=== PATIENT | female | born 2000 | race Caucasian/White ===

== ENCOUNTER 2022-10-18 18:18 | Emergency (ER) | payer OTHER, SELFPAY ==
[2022-10-18 18:31] VITALS: BP 139/63; PULSE 85; RESP 18; TEMP 36.9; O2SAT 99
[2022-10-18 19:33] LABS: Appearance Urine Cloudy (Clear); Bacteria Urine Rare /hpf; Bilirubin Urine Negative (Negative); Blood Urine Trace (Negative); Color Urine Yellow (Yellow); Glucose Urine UA Negative (Negative); Ketones Urine Negative (Negative); Leukocyte Esterase Ur 3+ LEU/UL (Negative); Nitrate Urine Negative (Negative); Non Pathogenic Casts 0-2; Protein Urine Negative (Negative); RBC Urine 0-2 /hpf (0-2); Squamous Epithelial Cell Urine Few /hpf (Few); Urobilinogen Urine 0.2 mg/dL (<2.0); WBC Urine 51-100 /hpf; pH Urine 6.5 (5.0-9.0)
[2022-10-18 19:41] LABS: Add Urine Microscopic? YES
--- NOTE | 2022-10-18 20:49 | ED.GENADULT ---
HPI - General Adult General Chief complaint: Back Pain/Injury Stated complaint: back pain, pain with urination Time Seen by Provider: 10/18/22 20:37 History of Present Illness HPI narrative: Patient 22-year-old female who presents the emergency department with chief complaint of flank pain. Patient reports that she has been having flank pain for the last several days and reports that she is having some suprapubic discomfort. Patient states that she has urinary frequency and burning with urination. The patient reports is also been several months since her last menstrual period patient denies vaginal bleeding and denies pelvic pain. Related Data Allergies Allergy/AdvReac Type Severity Reaction Status Date / Time morphine AdvReac Headache Verified 10/18/22 19:19 Review of Systems Review of Systems: A 10 system review of systems was completed on the patient and is negative except for what is stated in the HPI. Nursing and ancillary documentation was reviewed. Exam Narrative: GENERAL: Well-appearing, well-nourished, and in no acute distress. HEAD: Normocephalic, atraumatic. EYES: PERRLA and EOMI. ENT: Nares clear, no rhinorrhea or epistaxis. Mucous membranes moist. NECK: Supple. CHEST: Clear to auscultation. No respiratory distress. HEART: Regular rate and rhythm. No murmur heard. Normal peripheral pulses. ABDOMEN: Soft, nontender, nondistended, normal active bowel sounds. Back: There is mild tenderness in bilateral costovertebral angles EXTREMITIES: Normal range of motion. No edema. SKIN: Warm, dry, no rash. NEURO: No focal deficits. Alert and oriented x3. PSYCH: Normal mood and affect. Course Vital Signs Vital signs: Vital Signs Temperature 36.9 C 10/18/22 18:31 Pulse Rate 85 10/18/22 18:31 Respiratory Rate 18 10/18/22 18:31 Blood Pressure 139/63 10/18/22 18:31 Pulse Oximetry 99 10/18/22 18:31 Oxygen Delivery Room Air 10/18/22 18:31 Temperature 36.9 C 10/18/22 18:31 Pulse Rate 85 10/18/22 18:31 Respiratory Rate 18 10/18/22 18:31 Blood Pressure 139/63 10/18/22 18:31 Pulse Oximetry 99 10/18/22 18:31 Oxygen Delivery Room Air 10/18/22 18:31 Medical Decision Making MDM Narrative Medical decision making narrative: Differential diagnosis includes pyelonephritis, ectopic , ureterolithiasis Laboratory studies were obtained which showed a urinalysis that showed 3+ leukocyte esterase and 5100 white blood cells in the urine. There is no red blood cells in the urine Bedside test was positive The patient is currently not showing signs of ectopic abdomen is soft and nontender. The patient will be discharged on p.o. Keflex and will be referred to [employer] Vital Signs Vital Signs: Vital Signs Temperature 36.9 C 10/18/22 18:31 Pulse Rate 85 10/18/22 18:31 Respiratory Rate 18 10/18/22 18:31 Blood Pressure 139/63 10/18/22 18:31 Pulse Oximetry 99 10/18/22 18:31 Oxygen Delivery Room Air 10/18/22 18:31 Temperature 36.9 C 10/18/22 18:31 Pulse Rate 85 10/18/22 18:31 Respiratory Rate 18 10/18/22 18:31 Blood Pressure 139/63 10/18/22 18:31 Pulse Oximetry 99 10/18/22 18:31 Oxygen Delivery Room Air 10/18/22 18:31 Lab Data Labs: Lab Results 10/18/22 Range/Units 19:20 Urine Color Yellow (Yellow) Urine Appearance Cloudy H (Clear) Urine pH 6.5 (5.0-9.0) Ur Specific [place] 1.010 (1.001-1.035) Urine Protein Negative (Negative) mg/dL Urine Glucose (UA) Negative (Negative) mg/dL Urine Ketones Negative (Negative) mg/dL Ur Blood (Man) Trace (Negative) Urine Nitrate Negative (Negative) Urine Bilirubin Negative (Negative) Urine Urobilinogen 0.2 (<2.0) mg/dL Leukocyte Esterase Rfl 3+ H (Negative) WILLIAM/UL Urine RBC 0-2 (0-2) /hpf Urine WBC 51-100 H /hpf Ur Squamous Epith Cells Few (Few) /hpf Urine Bacteria Rare /hpf Urine Casts 0-2
[2022-10-18] MEDS: CEPHALEXIN 500 MG CAPSULE PO (21:02)
== END 2022-10-18 21:05 | disposition home or self-care (01) ==
PROVIDERS: Emergency Medicine; Emergency Provider Emergency Medicine
DX: O23.00 Infections of kidney in pregnancy, unspecified trimester (principal); N10 Acute pyelonephritis; Z3A.00 Weeks of gestation of pregnancy not specified
CPT/HCPCS: 81001; 81025; 87077; 87086; 87088; 99283; A9270

== ENCOUNTER 2022-10-29 23:34 | Observation (INO) | payer OTHER, SELFPAY ==
[2022-10-29 23:38] VITALS: BP 140/98; PULSE 125; RESP 20; TEMP 37.1; O2SAT 100
[2022-10-30 00:27] LABS: Basophils Percent Auto 0.5 % (0.2-1.2); Eosinophils Absolute Auto 0.1 K/mm3 (0-0.3); Eosinophils Percent Auto 0.8 % (0-4.4); Hematocrit 33.8 % (37.0-47.0); Hemoglobin 11.2 g/dL (12.0-15.0); Immature Granulocyte Absolute 0.02 K/mm3 (0.00-0.031); Immature Granulocyte Percent A 0.2 % (0-0.5); Lymphocytes Absolute Auto 2.37 K/mm3 (0.9-3.2); Lymphocytes Percent Auto 27.9 % (18.3-44.2); Mean Corpuscular HGB Conc 33.1 g/dl (32-36); Mean Corpuscular Hemoglobin 28.6 pg (26-34); Mean Corpuscular Volume 86.2 fl (80-100); Mean Platelet Volume 10.6 fl (7.4-10.4); Monocytes Absolute Auto 0.6 K/mm3 (0.1-0.6); Monocytes Percent Auto 7.4 % (2.6-8.5); Neutrophils Absolute Auto 5.4 K/mm3 (1.3-6.7); Neutrophils Percent Auto 63.2 % (45.5-73.1); Platelet Count Result 296 k/mm3 (150-375); Red Blood Count 3.92 M/mm3 (4.2-5.4); Red Cell Distribution Width 13.3 % (11.5-14.5); White Blood Count 8.5 K/mm3 (4.5-10.0)
[2022-10-30 00:31] LABS: INR 0.9; Prothrombin Time 12.2 Seconds (11.1-14.7)
[2022-10-30 00:32] LABS: Partial Thromboplastin Time 24.2 SECONDS (22.3-36.8)
--- NOTE | 2022-10-30 00:46 | ED.FEMALEGU ---
HPI - Female Genitourinary General Chief complaint: Vaginal Bleeding Stated complaint: had , losing clots. Time Seen by Provider: 10/29/22 23:46 History of Present Illness HPI Narrative: Patient is a 22-year-old female presenting with vaginal bleeding. Patient had a medical earlier today for a of approximately 8 weeks gestation. States that she took the pills sometime in the afternoon and then she started bleeding about 5 to 6 hours ago. States that she has passed multiple clots as well as products of conception. States that she has been feeling more than 2 pads per hour for couple of hours so she came in for evaluation. She denies chest pain or shortness of breath. States that she has had mild lightheadedness. No abdominal pain, nausea or vomiting, leg swelling. No further complaints. Related Data Home Medications Medication Instructions Recorded Confirmed No Home Medications 11/03/22 11/03/22 Allergies Allergy/AdvReac Type Severity Reaction Status Date / Time morphine AdvReac Headache Verified 11/03/22 17:11 Review of Systems Review of Systems: All systems reviewed & are unremarkable except as noted in HPI and below PMFSH Family History Family History Other Unknown family medical history Social History Social History Smoking status: Never smoker Alcohol intake: never Drinks per week: 1 Substance use: never Lack of Transportation: No Lack of Food: Never True Current Housing: I Have Housing Concerned About Future Housing: No Difficulty Paying Gas/Electric Bills: No Difficulty Paying for Meds: No Currently Unemployed: No Education: Trade/Vocational Certificate Difficulty w/ Childcare or Family Care: No Spiritual care concerns: No Exam Narrative: GENERAL: Well-appearing, no acute distress HEAD: Normocephalic, atraumatic. EYES: PERRLA and EOMI. ENT: Grossly unremarkable NECK: Supple. CHEST: No respiratory distress. HEART: Regular rate and rhythm ABDOMEN: Soft, nontender, nondistended Pelvic: Large amount of blood with numerous very large clots in the vaginal vault EXTREMITIES: Normal range of motion. No edema. SKIN: Warm, dry, no rash. NEURO: No focal deficits. Alert and oriented x3. PSYCH: Normal mood and affect. Course Vital Signs Vital signs: Vital Signs Temperature 98.8 F 10/29/22 23:38 Pulse Rate 125 H 10/29/22 23:38 Respiratory Rate 20 10/29/22 23:38 Blood Pressure 140/98 H 10/29/22 23:38 Pulse Oximetry 100 10/29/22 23:38 Oxygen Delivery Room Air 10/29/22 23:38 Temperature 98.1 F 10/30/22 04:18 Pulse Rate 55 L 10/30/22 04:18 Respiratory Rate 18 10/30/22 04:18 Blood Pressure 104/52 L 10/30/22 04:18 Pulse Oximetry 98 10/30/22 04:18 Oxygen Delivery Room Air 10/30/22 09:20 MDM - Female Genitourinary MDM Narrative Medical decision making narrative: Patient is a 22-year-old female presenting with vaginal bleeding in the setting of a medical today. Vital stable. Blood work is stable. Patient has soaked through multiple pads since arriving in the ER. She is bleeding very heavily on pelvic exam with numerous large clots. Concerned by the degree of her bleeding. I spoke with Dr. Gallagher who advises admission for observation and he will see her in the morning. Patient is agreeable with this plan. Differential Diagnosis Differential diagnosis: Likely urinary tract infection, cystitis, dysmenorrhea and other (Incomplete ) Medical Records Attestation: I reviewed the patient's medical records. Lab Data Attestation: I reviewed the patient's lab results. 10/29/22 23:58 Labs: Lab Results 10/29/22 Range/Units 23:58 WBC 8.5 (4.5-10.0) K/mm3 RBC 3.92 L (4.2-5.4) M/mm3 Hgb 11.2 L (12.0-15.0) g/dL Hct 33.8 L (37.0-47.0) % MCV 86.2 (80-
[2022-10-30] MEDS: KETOROLAC 30 MG/ML VIAL (*BKC) IM (01:58)
[2022-10-30] MEDS: SODIUM CHLORIDE 0.9% IV 1,000 ML 999 ML IV CONT (02:48)
[2022-10-30 03:07] VITALS: BP 119/72; PULSE 66; RESP 15; O2SAT 100
--- NOTE | 2022-10-30 03:22 | ADMGEN ---
This patient, Susu Underwood, was admitted to Medical Room 345-. Patient/family oriented to hospital policies and general routines including ID bracelet, bed and alarms, visiting hours, pain management, procedures, bathroom and other care routines, personal items, smoking policy, room service/diet, and visiting hours. Information on how to activate the Rapid Response Team has been discussed. Patient/Family are encouraged to report perceived risks to care and to ask questions if they do not understand what they are told or what they should do.
[2022-10-30] MEDS: KETOROLAC 30 MG/ML VIAL (*BKC) IV PUSH (03:54)
[2022-10-30 04:18] VITALS: BP 104/52; PULSE 55; RESP 18; TEMP 36.7; O2SAT 98; BMI 36.1
--- NOTE | 2022-10-30 09:47 | PM.IMHP ---
H&P: HPI History of Present Illness Date/Time: 10/30/22 09:47 Chief Complaint: vaginal bleeding Narrative: this patient is a 22-year-old female who presented to the emergency department with heavy vaginal bleeding. She was experiencing an elective termination. She had profound bleeding. Bleeding was appreciated by the emergency room doctor. She was admitted in the bleeding has resolved since. Patient is stable. She had a normal hemoglobin in the emergency department. She is afebrile, she denies any nausea, vomiting, fever, chills. She denies any chest pain shortness of breath. We intend to send her home with very short-term follow-up. She will be seen in the office tomorrow or the next day for evaluation and pelvic ultrasound. Review of Systems Review of Systems: All systems reviewed & are unremarkable except as noted in HPI and below Constitutional: Constitutional: Denies chills, Denies fatigue, Denies fever(s) and Denies weakness Eyes: Eyes: Denies blurry vision, Denies change in vision, Denies loss of peripheral vision, Denies loss of vision, Denies other visual disturbances and Denies eye pain ENT: Denies vertigo, Denies dizziness, Denies hearing loss, Denies mouth pain, Denies nasal obstruction, Denies neck mass and Denies neck pain Cardiovascular: Cardiovascular: Denies chest pain, Denies diaphoresis, Denies syncope, Denies leg edema and Denies dyspnea Respiratory: Respiratory: Denies chest congestion, Denies cough, Denies hemoptysis, Denies dyspnea and Denies wheezing Gastrointestinal: Gastrointestinal: Denies abdominal pain, Denies constipation, Denies diarrhea, Denies nausea and Denies vomiting Genitourinary: Genitourinary: Denies hematuria, Denies change in libido, Denies nocturia, Denies genital lesions, Denies flank pain and Denies urinary urgency Musculoskeletal: Musculoskeletal: Denies abnormal gait, Denies back pain, Denies myalgias, Denies arthralgias, Denies joint swelling, Denies muscle weakness and Denies neck pain Integumentary/Breasts: Skin/Breast: Denies swelling, Denies breast pain, Denies breast mass, Denies dry skin, Denies nipple discharge, Denies unusual bruising and Denies jaundice Neurologic: Denies Neuro-related abnormal movements, Denies Abnormal speech present, Denies abnormal gait, Denies behavioral changes, Denies confusion, Denies vertigo, Denies dizziness, Denies syncope, Denies loss of vision, Denies memory loss, Denies convulsions and Denies weakness Psychiatric: Psychiatric: Denies abnormal sleep pattern, Denies behavioral changes, Denies change in libido, Denies confusion, Denies depression, Denies anhedonia and Denies memory loss Endocrine: Endocrine: Reports no additional endocrine complaints, Denies change in libido and Denies fatigue Hematologic/Lymphatic: Hematologic/Lymphatic: Reports no additional hematologic/lymphatic complaints Allergic/Immunologic: Allergic/Immunologic: Reports no additional allergic/immunologic complaints and Denies wheezing [facility] Family History Family History (Updated 10/30/22 @ 03:33 by Silvia Martinez RN) Other Unknown family medical history Social History Social History Smoking status: Never smoker Alcohol intake: current Drinks per week: 1 Substance use: never Lack of Transportation: No Lack of Food: Never True Current Housing: I Have Housing Concerned About Future Housing: No Difficulty Paying Gas/Electric Bills: No Difficulty Paying for Meds: No Currently Unemployed: YES Education: High School Diploma/GED Difficulty w/ Childcare or Family Care: No Spiritual care concerns: No Meds Home Medications and Allergies Home Medications Medication Instructions Recorded Confirmed Type ibuprofen 600 mg tablet 600 mg PO Q6H PRN Mild Pain (Scale 10/30/22 10/30/22 History Score 1-4) promethazine 25 mg tablet 25 mg PO Q4-6H PRN Nausea 10/30/22
== END 2022-10-30 13:43 | disposition home or self-care (01) ==
LOC: ANHED 10-30 00:06 → ANH3MED 10-30 02:39
PROVIDERS: Admitting Provider Obstetrics & Gynecology; Emergency Provider Emergency Medicine; Visit Provider Obstetrics & Gynecology
DX: O03.9 Complete or unspecified spontaneous abortion without complication (principal)
CPT/HCPCS: 36415; 85025; 85610; 85730; 86850; 86900; 86901; 96361; 96372; 96374; 99285; G0378; G0379; J1885; J7030

== ENCOUNTER 2022-11-03 15:12 | Inpatient (IN) | payer OTHER, SELFPAY ==
[2022-11-03] VITALS (9 sets, daily range): BP systolic 100–135; BP diastolic 43–78; PULSE 65–125; RESP 12–18; TEMP 36.6–37.4; O2SAT 100; BMI 37.5
--- NOTE | ~2022-11-03 | US_ITS ---
EXAMINATION: US pelvic complete w TV DATE: 11/03/2022 19:26 INDICATION: Vaginal bleeding, possible retained products of conception TECHNIQUE: Multiple transabdominal and endovaginal sonographic images of the pelvis were obtained. COMPARISON: None. FINDINGS: The uterus measures 10.4 x 5.3 x 6.0 cm. There is heterogeneous material in the endometrial and endocervical canals.. The right ovary measures 2.4 x 1.8 x 1.8 cm. The left ovary measures 1.6 x 1.6 x 1.5 cm. There is normal vascular flow in the ovaries. There is no free fluid in the pelvis. IMPRESSION: 1. Heterogeneous material in the endometrial and endocervical canals concerning for retained products of conception. Reviewed, dictated and finalized at location F.
[2022-11-03 15:31] LABS: Basophils Percent Auto 0.6 % (0.2-1.2); Eosinophils Percent Auto 0.6 % (0-4.4); Hematocrit 28.5 % (37.0-47.0); Hemoglobin 9.2 g/dL (12.0-15.0); Immature Granulocyte Absolute 0.03 K/mm3 (0.00-0.031); Immature Granulocyte Percent A 0.4 % (0-0.5); Lymphocytes Absolute Auto 2.43 K/mm3 (0.9-3.2); Lymphocytes Percent Auto 34.3 % (18.3-44.2); Mean Corpuscular HGB Conc 32.3 g/dl (32-36); Mean Corpuscular Hemoglobin 28.8 pg (26-34); Mean Corpuscular Volume 89.1 fl (80-100); Mean Platelet Volume 10.3 fl (7.4-10.4); Monocytes Absolute Auto 0.5 K/mm3 (0.1-0.6); Monocytes Percent Auto 6.4 % (2.6-8.5); Neutrophils Absolute Auto 4.1 K/mm3 (1.3-6.7); Neutrophils Percent Auto 57.7 % (45.5-73.1); Platelet Count Result 287 k/mm3 (150-375); Red Cell Distribution Width 13.6 % (11.5-14.5); White Blood Count 7.1 K/mm3 (4.5-10.0)
--- NOTE | 2022-11-03 18:24 | ED.GENADULT ---
HPI - General Adult General Chief complaint: Vaginal Bleeding Stated complaint: vaginal bleeding- Time Seen by Provider: 11/03/22 17:17 History of Present Illness HPI narrative: Susu Underwood is a 22 y/o female with her third and one set of twins. She state that she was 8 weeks along when she had an elective Monday the , she passed what she thought was the products along with heavy bleeding later on Monday so she came here concerned. She then was admitted for monitoring and d/c home the following day (Monday). She states that since she has been having heavy vaginal bleeding that she feels is getting worse today. She states that she passed more clots today and felt that she was passing too much blood and came back today. She describes going through about 4 pads an hour at home. Once she arrived here she states her vaginal bleeding has improved, she also reports of mild intermittent lower abdominal pain. Related Data Home Medications Medication Instructions Recorded Confirmed No Home Medications 11/03/22 11/03/22 Allergies Allergy/AdvReac Type Severity Reaction Status Date / Time morphine AdvReac Headache Verified 11/03/22 17:11 Review of Systems Review of Systems: CONSTITUTIONAL: Denies fever, chills, or sweats. EYES: Denies visual changes, redness, or discharge. ENT: Denies rhinorrhea, congestion, sore throat, or otalgia. CARDIOVASCULAR: Denies chest pain, palpitations, or edema. RESPIRATORY: Denies cough or dyspnea. GASTROINTESTINAL: reports mild abdominal pain, nausea, vomiting, or diarrhea. GENITOURINARY: Denies dysuria or hematuria. Reports heavy vaginal bleeding that has been ongoing since Monday and she felt that it was much worse today. SKIN: Denies rash or itching. MUSCULOSKELETAL: Denies back pain, joint pain, or myalgia. NEUROLOGIC: Denies headache, numbness, dizziness, or weakness. PSYCHIATRIC: Denies anxiety or depression. [facility] Family History Family History Other Unknown family medical history Social History Social History Smoking status: Never smoker Alcohol intake: current Drinks per week: 1 Substance use: never Lack of Transportation: No Lack of Food: Never True Current Housing: I Have Housing Concerned About Future Housing: No Difficulty Paying Gas/Electric Bills: No Difficulty Paying for Meds: No Currently Unemployed: YES Education: High School Diploma/GED Difficulty w/ Childcare or Family Care: No Spiritual care concerns: No Exam Narrative: GENERAL: Well-appearing, well-nourished, and in no acute distress. HEAD: Normocephalic, atraumatic. EYES: PERRLA and EOMI. ENT: Nares clear, no rhinorrhea or epistaxis. Mucous membranes moist. Oropharynx without tonsillar hypertrophy exudate or other lesions. NECK: Supple. No adenopathy or masses. No carotid bruits or JVD CHEST: Clear to auscultation. No respiratory distress. No wheezes rales or rhonchi HEART: Regular rate and rhythm. No murmur heard. Normal peripheral pulses. ABDOMEN: Soft, nontender, nondistended, normal active bowel sounds. EXTREMITIES: Normal range of motion. No edema. SKIN: Warm, dry, no rash. NEURO: No focal deficits. Alert and oriented x3. PSYCH: Normal mood and affect. Course Vital Signs Vital signs: Vital Signs Temperature 37.4 C 11/03/22 15:15 Pulse Rate 120 H 11/03/22 15:15 Respiratory Rate 16 11/03/22 15:15 Blood Pressure 117/70 11/03/22 15:15 Pulse Oximetry 100 11/03/22 15:15 Oxygen Delivery Room Air 11/03/22 15:15 Temperature 36.7 C 11/03/22 19:51 Pulse Rate 86 11/03/22 19:55 Respiratory Rate 15 11/03/22 19:51 Blood Pressure 109/75 11/03/22 19:55 Pulse Oximetry 100 11/03/22 19:51 Oxygen Delivery Room Air 11/03/22 15:15 Medical Decision Making MDM Narrative Medical decision
--- NOTE | 2022-11-03 20:15 | PM.IMHP ---
H&P: HPI History of Present Illness Date/Time: 11/03/22 20:15 Chief Complaint: Vaginal bleeding Narrative: Susu Underwood is a 22 y/o female with her third and one set of twins. she had an elective Monday the at a clinic office. She has been having heavy bleeding later on Monday so she came here concerned.? She then was admitted on October 30 to OBGYN for monitoring and d/c home the following day. that since she has been having heavy vaginal bleeding that she feels is getting worse today. she passed more clots today and felt that she was passing too much blood and came back today. In the ED, patient found have anemia, hemoglobin 9.2, baseline 11.2 on October 29, 2022. Transvaginal ultrasound reveals Heterogeneous material in the endometrial and endocervical canals concerning for retained products of conception.Upon arrival, patient is afebrile, hemodynamically stable. ER physician consulted OBGYN, Dr. Gallagher recommended that we could give her Micronized Progesterone 200mg PO, however the pharmacy here does not carry that. We admit patient for the evaluation and treatment Review of Systems Review of Systems: RS negative except above [facility] Family History Family History Other Unknown family medical history Social History Social History Smoking status: Never smoker Alcohol intake: current Drinks per week: 1 Substance use: never Lack of Transportation: No Lack of Food: Never True Current Housing: I Have Housing Concerned About Future Housing: No Difficulty Paying Gas/Electric Bills: No Difficulty Paying for Meds: No Currently Unemployed: YES Education: High School Diploma/GED Difficulty w/ Childcare or Family Care: No Spiritual care concerns: No Meds Home Medications and Allergies Home Medications Medication Instructions Recorded Confirmed Type No Home Medications 11/03/22 11/03/22 History Allergies Allergy/AdvReac Type Severity Reaction Status Date / Time morphine AdvReac Headache Verified 11/03/22 17:11 Vital Signs Vital Signs - 24 hr 11/03/22 15:15 11/03/22 16:15 11/03/22 17:12 Temperature 99.4 F 99.4 F Pulse Rate 120 H 125 H 86 Respiratory Rate 16 16 18 Blood Pressure 117/70 135/78 119/64 Pulse Oximetry 100 100 100 Oxygen Delivery Room Air 11/03/22 19:51 11/03/22 19:55 11/03/22 19:55 Temperature 98.1 F Pulse Rate 65 73 77 Respiratory Rate 15 Blood Pressure 110/67 108/58 L 111/65 Pulse Oximetry 100 Oxygen Delivery 11/03/22 19:55 Temperature Pulse Rate 86 Respiratory Rate Blood Pressure 109/75 Pulse Oximetry Oxygen Delivery Exam Narrative: GENERAL: Pleasant, in no acute distress. Well-nourished. - EYES: EOMI. Anicteric. - HENT: Moist mucous membranes. - LUNGS: Clear to auscultation bilaterally, no wheezing, rhonchi, or rales. - CARDIOVASCULAR: Regular rate and rhythm. No murmur. No JVD. - ABDOMEN: Soft, suprapubic tender and non-distended. No palpable masses. - EXTREMITIES: No edema. Peripheral pulses 2+. Non-tender. - NEUROLOGIC: No focal neurological deficits. CN II-XII grossly intact. - PSYCHIATRIC: Awake, Alert and oriented x 3. Appropriate mood and affect. - SKIN: No rashes or lesions. Warm. - LYMPH: No cervical lymphadenopathy. H&P: Results Labs Labs: Short CBC 11/03/22 Range/Units 15:21 WBC 7.1 (4.5-10.0) K/mm3 Hgb 9.2 L (12.0-15.0) g/dL Hct 28.5 L (37.0-47.0) % Plt Count 287 (150-375) k/mm3 Assessment and Plan Assessment and plan (1) Incomplete : Code(s): O03.4 - Incomplete spontaneous without complication Status: Acute (2) Vaginal bleeding: Code(s): N93.9 - Abnormal uterine and vaginal bleeding, unspecified Status: Acute (3) Acute blood loss anemia: Code(s): D62 - Ac
[2022-11-03] MEDS: ACETAMINOPHEN 500 MG TABLET 1000 MG PO (20:17)
[2022-11-03] MEDS: DICYCLOMINE HCL INJ 20 MG/2 ML VIAL IM (20:17)
[2022-11-03] MEDS: SODIUM CHLORIDE 0.9% IV 1,000 ML 100 ML IV CONT (20:39)
[2022-11-03 20:49] LABS: Basophils Absolute Auto 0.1 K/mm3 (0.0-0.1); Basophils Percent Auto 0.7 % (0.2-1.2); Eosinophils Absolute Auto 0.1 K/mm3 (0-0.3); Eosinophils Percent Auto 0.9 % (0-4.4); Hematocrit 27.3 % (37.0-47.0); Hemoglobin 8.8 g/dL (12.0-15.0); Immature Granulocyte Absolute 0.01 K/mm3 (0.00-0.031); Immature Granulocyte Percent A 0.1 % (0-0.5); Lymphocytes Absolute Auto 2.84 K/mm3 (0.9-3.2); Lymphocytes Percent Auto 35.1 % (18.3-44.2); Mean Corpuscular HGB Conc 32.2 g/dl (32-36); Mean Corpuscular Hemoglobin 28.4 pg (26-34); Mean Corpuscular Volume 88.1 fl (80-100); Mean Platelet Volume 10.7 fl (7.4-10.4); Monocytes Absolute Auto 0.6 K/mm3 (0.1-0.6); Monocytes Percent Auto 7.2 % (2.6-8.5); Neutrophils Absolute Auto 4.5 K/mm3 (1.3-6.7); Platelet Count Result 284 k/mm3 (150-375); Red Cell Distribution Width 13.7 % (11.5-14.5); White Blood Count 8.1 K/mm3 (4.5-10.0)
[2022-11-03 20:59] LABS: Prothrombin Time 13.6 Seconds (11.1-14.7)
[2022-11-03 21:00] LABS: Alanine Aminotransferase 23 U/L (6-35); Alkaline Phosphatase 45 U/L (38-126); Anion Gap 6 mmol/L (8-16); Aspartate Amino Transferase 22 U/L (14-36); Bilirubin,Total 0.3 mg/dL (0.2-1.3); Blood Urea Nitrogen 11 mg/dL (7-17); Calcium 8.6 mg/dL (8.4-10.2); Carbon Dioxide 23 mmol/L (22-30); Chloride 108 mmol/L (98-107); Estimated CRCL calculation 170 ml/min; Estimated Glomerular Filt Rate > 60; Glucose 93 mg/dL (65-110); Iron 47 ug/dL (37-170); Partial Thromboplastin Time 27.1 SECONDS (22.3-36.8); Potassium 3.4 mmol/L (3.4-5.0); Sodium 137 mmol/L (137-145)
[2022-11-03 21:09] LABS: Percent Iron Saturation 10 % (20-50)
[2022-11-03 21:35] LABS: Ferritin 6.48 ng/mL (6.24-137)
--- NOTE | 2022-11-03 22:16 | ADMGEN ---
This patient, Susu Underwood, was admitted to [facility] Surg Room 315-02. Patient/family oriented to hospital policies and general routines including ID bracelet, bed and alarms, visiting hours, pain management, procedures, bathroom and other care routines, personal items, smoking policy, room service/diet, and visiting hours. Information on how to activate the Rapid Response Team has been discussed. Patient/Family are encouraged to report perceived risks to care and to ask questions if they do not understand what they are told or what they should do.
[2022-11-03] MEDS: HYDROcodone/acetaminophen (*CRX) 5-325 MG TABLET 1 TAB PO (22:56)
[2022-11-04] VITALS (18 sets, daily range): BP systolic 100–129; BP diastolic 38–76; PULSE 55–91; RESP 12–20; TEMP 36.2–37.4; O2SAT 96–100
[2022-11-04] MEDS: SODIUM CHLORIDE 0.9% IV 1,000 ML 100 ML IV CONT (06:08)
--- NOTE | 2022-11-04 08:28 | PM.GYNPNOP ---
[employer] - A/P Assessment and plan (1) Incomplete : Code(s): O03.4 - Incomplete spontaneous without complication Status: Acute Plan Incomplete miscarriage in a 22-year-old multiparous female. Spoke to the patient this morning. She was seen over the weekend for the same concern. We agreed to have some short-term follow-up and arrange the D&C. She did not follow-up. She returns to the emergency department bleeding. We agreed today to suction D and C in the afternoon. She understands the risks, benefits, and alternatives. She has completed informed consent process and is ready to proceed. Time Spent With Patient Time: Total time spent is greater than 50% in coordination of care (as documented) at patient's floor/unit and/or counseling patient: Time with patient: 15 - 25 minutes [employer]- PN:Yarely Post-Op Subjective Date/time seen: 11/04/22 08:28Incomplete miscarriage in a 22-year-old multiparous female. Spoke to the patient this morning. She was seen over the weekend for the same concern. We agreed to have some short-term follow-up and arrange the D&C. She did not follow-up. She returns to the emergency department bleeding. We agreed today to suction D and C in the afternoon. Exam Const: General: cooperative, healthy appearing, comfortable and no acute distress Orientation/consciousness: oriented to person, oriented to place and oriented to time HENMT: Head: normal to inspection Ears: external ears normal Face/Nose/Sinus: Normal external nose present and normal facial exam Face and sinus: normal facial exam Eyes: General: appearance normal, both eyes and all related structures Neck: Neck: normal visual inspection, trachea midline and supple Resp: Auscultation: clear to auscultation bilaterally, no crackles, no rales, no rhonchi and no wheezes Cardio: Rate: regular rate Rhythm: regular rhythm Heart sounds: no click, no murmurs and no rubs GI: GI Palp: No abdominal tenderness, No Soft to palpation, No Tenderness to palpation present (GI) and No Palpable mass present Auscultation: normal bowel sounds Skin: General skin exam: normal color and no rashes or lesions noted Neuro: General: oriented to person, oriented to place and oriented to time Extrem: General: normal to inspection, no joint enlargement, no clubbing, cyanosis or edema, no pedal edema and no calf tenderness Psych: Appearance: grossly normal Mental Status: mental status grossly normal Speech and movement: Normal speech and movement present [employer] - PN: Obj Data Vital Signs Vital Signs: Vital Signs - 24 hr 11/03/22 15:15 11/03/22 16:15 11/03/22 17:12 Temperature 99.4 F 99.4 F Pulse Rate 120 H 125 H 86 Respiratory Rate 16 16 18 Blood Pressure 117/70 135/78 119/64 Pulse Oximetry 100 100 100 Oxygen Delivery Room Air 11/03/22 19:51 11/03/22 19:55 11/03/22 19:55 Temperature 98.1 F Pulse Rate 65 73 77 Respiratory Rate 15 Blood Pressure 110/67 108/58 L 111/65 Pulse Oximetry 100 Oxygen Delivery 11/03/22 19:55 11/03/22 21:00 11/03/22 21:54 Temperature Pulse Rate 86 74 66 Respiratory Rate 16 15 Blood Pressure 109/75 113/70 100/53 L Pulse Oximetry 100 100 Oxygen Delivery 11/03/22 22:24 11/03/22 22:20 11/04/22 05:38 Temperature 97.9 F 97.6 F Pulse Rate 66 66 61 Respiratory Rate 12 12 14 Blood Pressure 112/43 L 100/48 L Pulse Oximetry 100 100 99 Oxygen Delivery Room Air 11/04/22 08:00 Temperature Pulse Rate Respiratory Rate Blood Pressure Pulse Oximetry Oxygen Delivery Room Air Intake/Output Intake/Output: Intake & Output 11/01/22 11/02/22 11/03/22 11/04/22 23:59 23:59 23:59 23:59 Intake Total 1750 Balance 1750 Meds/Results Medications: Active Medications Generic Name Dose Route Start Last Admin Trade Name Freq PRN Reason Stop Dose Admin Hydrocodone Bitart/Acetaminophen 1 tab 11/03/22 22:31 11/03/22 22:56 Hydrocodone/Acetaminophen (*Crx) 5-
--- NOTE | 2022-11-04 08:45 | PM.IMPN ---
Progress Note: A&P Assessment and Plan (1) Incomplete : Code(s): O03.4 - Incomplete spontaneous without complication Status: Acute (2) Vaginal bleeding: Code(s): N93.9 - Abnormal uterine and vaginal bleeding, unspecified Status: Acute (3) Acute blood loss anemia: Code(s): D62 - Acute posthemorrhagic anemia Status: Acute Plan Heavy vaginal bleeding Patient had a schedule 5 days ago. Since then patient has been having vaginal bleeding Transvaginal ultrasound reveals Heterogeneous material in the endometrial and endocervical canals concerning for retained products of conception. Vaginal bleeding likely secondary to retained products for conception Patient is afebrile, white blood cell within normal limits, no sign infection ER provider has consulted OBGYN, Management per consumer relations complaint clerk Acute blood loss anemia Upon arrival hemoglobin 9.2, baseline 11.2 on October 29, 2022. Patient is hemodynamically stable Type screening ordered, Follow hemoglobin q.6 hours Transfuse as needed Order ferritin, iron panel, iron saturation is low, ferritin and iron level the lower side Start ferrous sulfate 325 mg b.i.d. p.o. Patient may stay more than 2 midnights in the hospital Subjective Date/time seen: 11/04/22 08:45 Interval history: Patient still has some pain, bleeding from vagina persists. Patient has some lightheadedness with movement, denies chest pain, shortness a breath, hemoglobin is trending down Exam Narrative: GENERAL: Pleasant, in no acute distress. Well-nourished. - EYES: EOMI. Anicteric. - HENT: Moist mucous membranes. - LUNGS: Clear to auscultation bilaterally, no wheezing, rhonchi, or rales. - CARDIOVASCULAR: Regular rate and rhythm. No murmur. No JVD. - ABDOMEN: Soft, suprapubic tender and non-distended. No palpable masses. - EXTREMITIES: No edema. Peripheral pulses 2+. Non-tender. - NEUROLOGIC: No focal neurological deficits. CN II-XII grossly intact. - PSYCHIATRIC: Awake, Alert and oriented x 3. Appropriate mood and affect. - SKIN: No rashes or lesions. Warm. - LYMPH: No cervical lymphadenopathy. Objective Data Vital Signs Vital Signs: Vital Signs - 24 hr 11/03/22 15:15 11/03/22 16:15 11/03/22 17:12 Temperature 99.4 F 99.4 F Pulse Rate 120 H 125 H 86 Respiratory Rate 16 16 18 Blood Pressure 117/70 135/78 119/64 Pulse Oximetry 100 100 100 Oxygen Delivery Room Air 11/03/22 19:51 11/03/22 19:55 11/03/22 19:55 Temperature 98.1 F Pulse Rate 65 73 77 Respiratory Rate 15 Blood Pressure 110/67 108/58 L 111/65 Pulse Oximetry 100 Oxygen Delivery 11/03/22 19:55 11/03/22 21:00 11/03/22 21:54 Temperature Pulse Rate 86 74 66 Respiratory Rate 16 15 Blood Pressure 109/75 113/70 100/53 L Pulse Oximetry 100 100 Oxygen Delivery 11/03/22 22:24 11/03/22 22:20 11/04/22 05:38 Temperature 97.9 F 97.6 F Pulse Rate 66 66 61 Respiratory Rate 12 12 14 Blood Pressure 112/43 L 100/48 L Pulse Oximetry 100 100 99 Oxygen Delivery Room Air 11/04/22 08:00 Temperature Pulse Rate Respiratory Rate Blood Pressure Pulse Oximetry Oxygen Delivery Room Air Intake/Output Intake/Output: Intake & Output 11/01/22 11/02/22 11/03/22 11/04/22 23:59 23:59 23:59 23:59 Intake Total 1750 Balance 1750 Meds/Results Medications: Active Medications Generic Name Dose Route Start Last Admin Trade Name Freq PRN Reason Stop Dose Admin Hydrocodone Bitart/Acetaminophen 1 tab 11/03/22 22:31 11/03/22 22:56 Hydrocodone/Acetaminophen (*Crx) 5-325 Mg Tablet PO 1 tab Q4H PRN Administration Pain Rated 4-6 Sodium Chloride 1,000 mls @ 100 mls/hr 11/03/22 20:20 11/04/22 06:08 Normal Saline Iv IV CONT 100 mls/hr .Q10H BATSHEVA Administration Metoclopramide HCl 10 mg 11/03/22 22:32 Metoclopramide Hcl Inj 10 Mg/2 Ml Vial IV PUSH Q6HR PRN Nausea Radiology Results: ITS Impression
[2022-11-04 09:05] LABS: Basophils Percent Auto 0.4 % (0.2-1.2); Eosinophils Absolute Auto 0.1 K/mm3 (0-0.3); Eosinophils Percent Auto 1.5 % (0-4.4); Hematocrit 23.6 % (37.0-47.0); Hemoglobin 7.4 g/dL (12.0-15.0); Immature Granulocyte Absolute 0.01 K/mm3 (0.00-0.031); Immature Granulocyte Percent A 0.2 % (0-0.5); Lymphocytes Absolute Auto 1.93 K/mm3 (0.9-3.2); Lymphocytes Percent Auto 42.7 % (18.3-44.2); Mean Corpuscular HGB Conc 31.4 g/dl (32-36); Mean Corpuscular Hemoglobin 28.4 pg (26-34); Mean Corpuscular Volume 90.4 fl (80-100); Mean Platelet Volume 10.2 fl (7.4-10.4); Monocytes Absolute Auto 0.3 K/mm3 (0.1-0.6); Monocytes Percent Auto 6.6 % (2.6-8.5); Neutrophils Absolute Auto 2.2 K/mm3 (1.3-6.7); Neutrophils Percent Auto 48.6 % (45.5-73.1); Platelet Count Result 195 k/mm3 (150-375); Red Blood Count 2.61 M/mm3 (4.2-5.4); Red Cell Distribution Width 13.7 % (11.5-14.5); White Blood Count 4.5 K/mm3 (4.5-10.0)
[2022-11-04 09:12] LABS: Anion Gap 3 mmol/L (8-16); Blood Urea Nitrogen 10 mg/dL (7-17); Calcium 7.8 mg/dL (8.4-10.2); Carbon Dioxide 25 mmol/L (22-30); Chloride 109 mmol/L (98-107); Estimated CRCL calculation 173 ml/min; Estimated Glomerular Filt Rate > 60; Glucose 93 mg/dL (65-110); Potassium 3.4 mmol/L (3.4-5.0); Sodium 137 mmol/L (137-145)
[2022-11-04] MEDS: LACTATED RINGERS 1,000 ML 30 ML IV CONT (12:30)
--- NOTE | 2022-11-04 13:27 | WPDHPUPDATE1 ---
History and Physical Update Update Date/Time: 11/04/22 13:27 History and Physical has been reviewed, including an updated exam of the patient. There are NO changes in the patient's condition. Risks, benefits, and alternatives have been discussed and questions answered. Patient agrees to proceed with procedure.
--- NOTE | 2022-11-04 13:31 | WPDANESEPPF ---
Anes - Initial Pre Proc Eval Procedure: Operation Date: 11/04/22 14:00 Proposed Procedures p Suction Dilatation and Curettage - Erlin Galalgher MD Date/Time: 11/04/22 13:31 Surgeon: Alan Lyn MD Pre Op Diagnosis: Retained Products of Conception Patient Data Age: 22 Gender: F Height: 1.65 m Weight: 102.4 kg Last Vital Signs Temp 97.6 F 11/04/22 05:38 Pulse 61 11/04/22 05:38 Resp 14 11/04/22 05:38 BP 100/48 L 11/04/22 05:38 Pulse Ox 99 11/04/22 05:38 O2 Del Method Room Air 11/04/22 08:00 Allergies Allergy/AdvReac Type Severity Reaction Status Date / Time morphine AdvReac Headache Verified 11/04/22 12:28 Home Medications Medication Instructions Recorded Confirmed Type No Home Medications 11/03/22 11/03/22 History Laboratory Tests 11/03/22 11/03/22 11/03/22 15:21 20:38 20:38 WBC 7.1 K/mm3 8.1 K/mm3 (4.5-10.0) (4.5-10.0) RBC 3.20 L M/mm3 3.10 L M/mm3 (4.2-5.4) (4.2-5.4) Hgb 9.2 L g/dL 8.8 L g/dL (12.0-15.0) (12.0-15.0) Hct 28.5 L % 27.3 L % (37.0-47.0) (37.0-47.0) MCV 89.1 fl 88.1 fl (80-100) (80-100) MCH 28.8 pg 28.4 pg (26-34) (26-34) MCHC 32.3 g/dl 32.2 g/dl (32-36) (32-36) RDW 13.6 % 13.7 % (11.5-14.5) (11.5-14.5) Plt Count 287 k/mm3 284 k/mm3 (150-375) (150-375) MPV 10.3 fl 10.7 H fl (7.4-10.4) (7.4-10.4) Immature Gran % (Auto) 0.4 % 0.1 % (0-0.5) (0-0.5) Neut % (Auto) 57.7 % 56.0 % (45.5-73.1) (45.5-73.1) Lymph % (Auto) 34.3 % 35.1 % (18.3-44.2) (18.3-44.2) Dent % (Auto) 6.4 % 7.2 % (2.6-8.5) (2.6-8.5) Eos % (Auto) 0.6 % 0.9 % (0-4.4) (0-4.4) Baso % (Auto) 0.6 % 0.7 % (0.2-1.2) (0.2-1.2) Lymph # (Auto) 2.43 K/mm3 2.84 K/mm3 (0.9-3.2) (0.9-3.2) Dent # (Auto) 0.5 K/mm3 0.6 K/mm3 (0.1-0.6) (0.1-0.6) Eos # (Auto) 0.0 K/mm3 0.1 K/mm3 (0-0.3) (0-0.3) Baso # (Auto) 0.0 K/mm3 0.1 K/mm3 (0.0-0.1) (0.0-0.1) Abs Immat Gran (auto) 0.03 K/mm3 0.01 K/mm3 (0.00-0.031) (0.00-0.031) Absolute Neuts (auto) 4.1 K/mm3 4.5 K/mm3 (1.3-6.7) (1.3-6.7) Absolute Nucleated RBC 0.0 K/mm3 0.0 K/mm3 (0.0-0.012) (0.0-0.012) Nucleated RBC % 0.0 % 0.0 % (0.0-0.2) (0.0-0.2) PT 13.6 Seconds (11.1-14.7) INR 1.0 APTT 27.1 SECONDS (22.3-36.8) Sodium 137 mmol/L Cancelled (137-145) Potassium 3.4 mmol/L (3.4-5.0) Chloride Carbon Dioxide Anion Gap BUN Creatinine Estim Creat Clear Calc Estimated GFR Glucose Calcium Iron TIBC % Saturation Ferritin Total Bilirubin AST ALT Alkaline Phosphatase Total Protein Albumin Beta HCG, Quant 56936.00 mIU/ML Blood Type O Positive Antibody Screen Negative 11/03/22 11/03/22 11/03/22 20:38 20:38 20:38 WBC RBC Hgb Hct MCV MCH MCHC RDW Plt Count MPV Immature Gran % (Auto) Neut % (Auto) Lymph % (Auto) Dent % (Auto) Eos % (Auto) Baso % (Auto) Lymph # (Auto) Dent # (Auto) Eos # (Auto) Baso # (Auto) Abs Immat Gran (auto) Absolute Neuts (auto) Absolute Nucleated RBC Nucleated RBC % PT INR APTT Sodium Potassium Cancelled Chloride 108 H mmol/L Cancelled (98-107) Carbon Dioxide 23 mmol/L Cancelled
--- NOTE | 2022-11-04 13:45 | SUR.PREOP ---
1240- Addressed pt HGB of 7.[address] Gallagher on arrival to pre op for suction d and c. He stated he will see pt in pre op area. 1330- Dr. Gallagher seen pt and he stated to order 1 unit of PRBC. PRBC ordered. He would like pt to receive before she goes home. Updated OR staff. Called and updated JON Ward on floor. Pt to OR at 1340
--- NOTE | 2022-11-04 14:00 | W.PM.PROC2 ---
Procedure Note - Detailed Date of Procedure 11/04/22 Pre-op Diagnosis Retained Products of Conception Post-op Diagnosis Same Procedure Performed Suction D&C Surgeon Erlin Gallagher MD Anesthesia MAC Indications missed Findings normal-appearing vulva vagina and cervix to. Moderate amount of products conception within the uterus. 8 cm uterus Description of Procedure the patient was taken the operating room. She was prepped and draped in dorsal lithotomy position after induction of mac anesthesia. A speculum was placed in the vagina. Cervix grasped with tenaculum. The cervix was dilated to about 1 cm Using Frances dilators. A 8. Syriac curved curette was used to perform suction D&C. The curette was introduced and vacuum was applied. The curette was removed over all surfaces of the intrauterine cavity multiple times. This was done until all the surfaces were clear and had the familiar grainy texture they can be felt through the instrument. A sharp curette was then used to curettage all the surfaces. The suction cup was then reapplied 1 more time to remove any debris. The instruments were removed. The speculum and tenaculum were removed. The patient tolerated the procedure well. She was taken recovery room stable condition. Estimated Blood Loss 50 Drains No Packing No Pathology Yes Complications No immediate complications Condition Stable Disposition PACU
[2022-11-04] MEDS: fentaNYL CITRATE INJ (*CRX) 100 MCG/2 ML VIAL 25 MCG IV PUSH ×4 (14:20→14:45)
[2022-11-04] MEDS: SODIUM CHLORIDE 0.9% IV 250 ML 30 ML IV CONT (14:45)
[2022-11-04] MEDS: FERROUS SULFATE 325 MG TABLET DR PO (17:03)
[2022-11-04 19:41] LABS: Hematocrit 27.7 % (37.0-47.0); Hemoglobin 8.8 g/dL (12.0-15.0)
[2022-11-04 20:42] LABS: Basophils Percent Auto 0.5 % (0.2-1.2); Eosinophils Absolute Auto 0.1 K/mm3 (0-0.3); Hematocrit 27.4 % (37.0-47.0); Hemoglobin 8.8 g/dL (12.0-15.0); Immature Granulocyte Absolute 0.02 K/mm3 (0.00-0.031); Immature Granulocyte Percent A 0.3 % (0-0.5); Lymphocytes Absolute Auto 2.17 K/mm3 (0.9-3.2); Lymphocytes Percent Auto 36.8 % (18.3-44.2); Mean Corpuscular HGB Conc 32.1 g/dl (32-36); Mean Corpuscular Hemoglobin 28.4 pg (26-34); Mean Corpuscular Volume 88.4 fl (80-100); Monocytes Absolute Auto 0.4 K/mm3 (0.1-0.6); Monocytes Percent Auto 7.5 % (2.6-8.5); Neutrophils Absolute Auto 3.2 K/mm3 (1.3-6.7); Neutrophils Percent Auto 53.9 % (45.5-73.1); Platelet Count Result 225 k/mm3 (150-375); Red Cell Distribution Width 13.9 % (11.5-14.5); White Blood Count 5.9 K/mm3 (4.5-10.0)
[2022-11-04 22:19] LABS: Anion Gap 4 mmol/L (8-16); Blood Urea Nitrogen 8 mg/dL (7-17); Calcium 8.2 mg/dL (8.4-10.2); Carbon Dioxide 25 mmol/L (22-30); Chloride 108 mmol/L (98-107); Estimated CRCL calculation 147 ml/min; Estimated Glomerular Filt Rate > 60; Glucose 93 mg/dL (65-110); Potassium 3.7 mmol/L (3.4-5.0); Sodium 137 mmol/L (137-145)
[2022-11-05 05:38] VITALS: BP 104/45; PULSE 71; RESP 14; TEMP 36.1; O2SAT 99
[2022-11-05 06:34] LABS: Basophils Percent Auto 0.6 % (0.2-1.2); Eosinophils Absolute Auto 0.2 K/mm3 (0-0.3); Eosinophils Percent Auto 3.5 % (0-4.4); Hematocrit 26.6 % (37.0-47.0); Hemoglobin 8.4 g/dL (12.0-15.0); Immature Granulocyte Absolute 0.02 K/mm3 (0.00-0.031); Immature Granulocyte Percent A 0.4 % (0-0.5); Lymphocytes Absolute Auto 2.16 K/mm3 (0.9-3.2); Lymphocytes Percent Auto 42.1 % (18.3-44.2); Mean Corpuscular HGB Conc 31.6 g/dl (32-36); Mean Corpuscular Volume 88.7 fl (80-100); Mean Platelet Volume 10.8 fl (7.4-10.4); Monocytes Absolute Auto 0.3 K/mm3 (0.1-0.6); Monocytes Percent Auto 6.4 % (2.6-8.5); Neutrophils Absolute Auto 2.4 K/mm3 (1.3-6.7); Platelet Count Result 217 k/mm3 (150-375); Red Cell Distribution Width 13.9 % (11.5-14.5); White Blood Count 5.1 K/mm3 (4.5-10.0)
[2022-11-05 06:44] LABS: Anion Gap 4 mmol/L (8-16); Blood Urea Nitrogen 8 mg/dL (7-17); Calcium 8.2 mg/dL (8.4-10.2); Carbon Dioxide 25 mmol/L (22-30); Chloride 108 mmol/L (98-107); Estimated CRCL calculation 147 ml/min; Estimated Glomerular Filt Rate > 60; Glucose 98 mg/dL (65-110); Potassium 3.8 mmol/L (3.4-5.0); Sodium 137 mmol/L (137-145)
[2022-11-05] MEDS: FERROUS SULFATE 325 MG TABLET DR PO (08:43)
--- NOTE | 2022-11-05 10:24 | WPDANESPN ---
Anes - Prog Note Post-Op Date/Time: 11/05/22 10:24 Cardiovascular status: normal Respiratory status: normal Airway patency: baseline Mental status: baseline Post-Op hydration status: normal Vital Signs: Last Vital Signs Temp 36.1 C L 11/05/22 05:38 Pulse 71 11/05/22 05:38 Resp 14 11/05/22 05:38 BP 104/45 L 11/05/22 05:38 Pulse Ox 99 11/05/22 05:38 O2 Del Method Room Air 11/04/22 20:10 O2 Flow Rate 8 11/04/22 14:25 Pain Score (VAS): 04/15 I/O: Intake & Output 11/04/22 11/05/22 11/05/22 23:59 07:59 15:59 Intake Total 590 750 Balance 590 750 Laboratory Tests 11/05/22 06:02 11/05/22 06:02 11/03/22 11/04/22 11/04/22 15:21 19:16 19:20 WBC 5.9 RBC 3.10 L Hgb 8.8 L 8.8 L Hct 27.4 L 27.7 L MCV 88.4 MCH 28.4 MCHC 32.1 RDW 13.9 Plt Count 225 MPV 11.0 H Immature Gran % (Auto) 0.3 Neut % (Auto) 53.9 Lymph % (Auto) 36.8 Frontier % (Auto) 7.5 Eos % (Auto) 1.0 Baso % (Auto) 0.5 Lymph # (Auto) 2.17 Frontier # (Auto) 0.4 Eos # (Auto) 0.1 Baso # (Auto) 0.0 Abs Immat Gran (auto) 0.02 Absolute Neuts (auto) 3.2 Absolute Nucleated RBC 0.0 Nucleated RBC % 0.0 Sodium Potassium Chloride Carbon Dioxide Anion Gap BUN Creatinine Estim Creat Clear Calc Estimated GFR Glucose Calcium Blood Type O Positive Antibody Screen Negative Crossmatch See Detail 11/04/22 11/05/22 21:50 06:02 WBC 5.1 RBC 3.00 L Hgb 8.4 L Hct 26.6 L MCV 88.7 MCH 28.0 MCHC 31.6 L RDW 13.9 Plt Count 217 MPV 10.8 H Immature Gran % (Auto) 0.4 Neut % (Auto) 47.0 Lymph % (Auto) 42.1 Frontier % (Auto) 6.4 Eos % (Auto) 3.5 Baso % (Auto) 0.6 Lymph # (Auto) 2.16 Frontier # (Auto) 0.3 Eos # (Auto) 0.2 Baso # (Auto) 0.0 Abs Immat Gran (auto) 0.02 Absolute Neuts (auto) 2.4 Absolute Nucleated RBC 0.0 Nucleated RBC % 0.0 Sodium 137 137 Potassium 3.7 3.8 Chloride 108 H 108 H Carbon Dioxide 25 25 Anion Gap 4 L 4 L BUN 8 8 Creatinine 0.60 L 0.60 L Estim Creat Clear Calc 147 147 Estimated GFR > 60 > 60 Glucose 93 98 Calcium 8.2 L 8.2 L Blood Type Antibody Screen Crossmatch Post-procedural complaints: none Patient Feedback: Patient satisfied with anesthetic care.
--- NOTE | 2022-11-05 10:59 | PM.IMPN ---
Progress Note: A&P Assessment and Plan (1) Incomplete : Code(s): O03.4 - Incomplete spontaneous without complication Status: Acute (2) Vaginal bleeding: Code(s): N93.9 - Abnormal uterine and vaginal bleeding, unspecified Status: Acute (3) Acute blood loss anemia: Code(s): D62 - Acute posthemorrhagic anemia Status: Acute Plan Heavy vaginal bleeding Patient had a schedule 5 days ago. Since then patient has been having vaginal bleeding Transvaginal ultrasound reveals Heterogeneous material in the endometrial and endocervical canals concerning for retained products of conception. Vaginal bleeding likely secondary to retained products for conception Patient is afebrile, white blood cell within normal limits, no sign infection ER provider has consulted OBGYN, Management per icebox man pt underwent I&D yesterday now no pain and no bleeding from vagina. Acute blood loss anemia Upon arrival hemoglobin 9.2, baseline 11.2 on October 29, 2022. Patient is hemodynamically stable Type screening ordered, Follow hemoglobin q.6 hours Transfuse as needed Order ferritin, iron panel, iron saturation is low, ferritin and iron level the lower side Started ferrous sulfate 325 mg b.i.d. p.o. now Hb 8.4 up from 7.4 yesterday. Patient may stay more than 2 midnights in the hospital Subjective Date/time seen: 11/05/22 10:59 Interval history: Patient has no abd pain, no bleeding from vagina. Patient denies chest pain, shortness a breath, hemoglobin is trending up Exam Narrative: GENERAL: Pleasant, in no acute distress. Well-nourished. - EYES: EOMI. Anicteric. - HENT: Moist mucous membranes. - LUNGS: Clear to auscultation bilaterally, no wheezing, rhonchi, or rales. - CARDIOVASCULAR: Regular rate and rhythm. No murmur. No JVD. - ABDOMEN: Soft, no tender and non-distended. No palpable masses. - EXTREMITIES: No edema. Peripheral pulses 2+. Non-tender. - NEUROLOGIC: No focal neurological deficits. CN II-XII grossly intact. - PSYCHIATRIC: Awake, Alert and oriented x 3. Appropriate mood and affect. - SKIN: No rashes or lesions. Warm. - LYMPH: No cervical lymphadenopathy. Objective Data Vital Signs Vital Signs: Vital Signs - 24 hr 11/04/22 12:30 11/04/22 13:59 11/04/22 14:10 Temperature 97.6 F 97.3 F L Pulse Rate 59 L 56 L 55 L Respiratory Rate 16 13 16 Blood Pressure 108/38 L 101/53 L 120/62 Pulse Oximetry 100 100 100 Oxygen Delivery Room Air Simple Face Mask Room Air Oxygen Flow Rate 8 11/04/22 14:25 11/04/22 14:40 11/04/22 14:55 Temperature 97.6 F Pulse Rate 66 70 60 Respiratory Rate 12 16 18 Blood Pressure 100/58 L 108/57 L 102/54 L Pulse Oximetry 100 98 98 Oxygen Delivery Simple Face Mask Room Air Room Air Oxygen Flow Rate 8 11/04/22 15:00 11/04/22 15:15 11/04/22 15:30 Temperature 97.6 F 98.2 F Pulse Rate 59 L 70 60 Respiratory Rate 16 20 16 Blood Pressure 108/57 L 110/63 105/68 Pulse Oximetry 96 98 100 Oxygen Delivery Room Air Room Air Room Air Oxygen Flow Rate 11/04/22 14:45 11/04/22 16:00 11/04/22 14:00 Temperature 97.8 F 97.2 F L 97.2 F L Pulse Rate 66 63 60 Respiratory Rate 18 16 16 Blood Pressure 102/55 L 112/61 112/61 Pulse Oximetry 98 100 100 Oxygen Delivery Oxygen Flow Rate 11/04/22 17:00 11/04/22 18:00 11/04/22 16:45 Temperature 98.5 F 97.8 F 99.4 F Pulse Rate 70 62 76 Respiratory Rate 16 17 18 Blood Pressure 110/60 117/66 129/76 Pulse Oximetry 100 100 99 Oxygen Delivery Oxygen Flow Rate 11/04/22 21:24 11/04/22 20:10 11/05/22 05:38 Temperature 99.2 F 96.9 F L Pulse Rate 91 91 71 Respiratory Rate 12 12 14 Blood Pressure 124/62 104/45 L Pulse Oximetry 100 100 99 Oxygen Delivery Room Air Oxygen Flow Rate Intake/Output Intake/Output: Intake & Output 11/02/22 11/03/22 11/04/22 11/05/22 23:59 23:59 23:59 23:59 Intake Total 2390 750 Balance 2390 750 Meds/Results
--- NOTE | 2022-11-05 12:24 | PM.DS ---
DS: Admitting Diagnosis Discharge Date Today Admitting Diagnosis (1) Incomplete : ?Code(s): O03.4 - Incomplete spontaneous without complication ?Status:?Acute (2) Vaginal bleeding: ?Code(s): N93.9 - Abnormal uterine and vaginal bleeding, unspecified ?Status:?Acute (3) Acute blood loss anemia: ?Code(s): D62 - Acute posthemorrhagic anemia ?Status:?Acute DS: Discharge Diagnosis Discharge Diagnosis (1) Incomplete : Code(s): O03.4 - Incomplete spontaneous without complication Status: Acute (2) Vaginal bleeding: Code(s): N93.9 - Abnormal uterine and vaginal bleeding, unspecified Status: Acute (3) Acute blood loss anemia: Code(s): D62 - Acute posthemorrhagic anemia Status: Acute DS: Summary Hospital Course Hospital Course: Susu Underwood is a 22 y/o female with her third and one set of twins.? she had an elective Monday the at a clinic office.? She has been having heavy bleeding later on Monday so she came here concerned.? She then was admitted on October 30 to OBGYN for monitoring and d/c home the following day.? that since she has been having heavy vaginal bleeding that she feels is getting worse today.? she passed more clots today and felt that she was passing too much blood and came back today. In the ED, patient found have anemia, hemoglobin 9.2, baseline 11.2 on October 29, 2022.? Transvaginal ultrasound reveals?Heterogeneous material in the endometrial and endocervical canals concerning for retained products of conception.Upon arrival, patient is afebrile, hemodynamically stable.? ER physician consulted OBGYN,?Dr. Gallagher ? recommended that we could give her Micronized Progesterone 200mg PO, however the pharmacy here does not carry that.? We admit patient for the evaluation and treatment The following medical issues have been addressed during hospitalization Heavy vaginal bleeding Patient had a schedule 5 days ago. Since then patient has been having vaginal bleeding Transvaginal ultrasound reveals Heterogeneous material in the endometrial and endocervical canals concerning for retained products of conception. Vaginal bleeding likely secondary to retained products for conception Patient is afebrile, white blood cell within normal limits, no sign infection ER provider has consulted OBGYN, Management per body work auto trimmer pt underwent I&D yesterday now no pain and no bleeding from vagina. Acute blood loss anemia Upon arrival hemoglobin 9.2, baseline 11.2 on October 29, 2022. Patient is hemodynamically stable Type screening ordered, Follow hemoglobin q.6 hours Transfuse as needed Order ferritin, iron panel, iron saturation is low, ferritin and iron level the lower side Started ferrous sulfate 325 mg b.i.d. p.o. now Hb 8.4 up from 7.4 yesterday. Patient will discharge home today, patient will see OBGYN in the office at scheduled appointment. Hospital course uneventful. Patient is afebrile, blood pressure stable on discharge Time Spent with Patient Time attestation: Total time spent providing and/or coordinating discharge services: Exam Narrative: GENERAL: Pleasant, in no acute distress. Well-nourished. - EYES: EOMI. Anicteric. - HENT: Moist mucous membranes. - LUNGS: Clear to auscultation bilaterally, no wheezing, rhonchi, or rales. - CARDIOVASCULAR: Regular rate and rhythm. No murmur. No JVD. - ABDOMEN: Soft, no tender and non-distended. No palpable masses. - EXTREMITIES: No edema. Peripheral pulses 2+. Non-tender. - NEUROLOGIC: No focal neurological deficits. CN II-XII grossly intact. - PSYCHIATRIC: Awake, Alert and oriented x 3. Appropriate mood and affect. - SKIN: No rashes or lesions. Warm. - LYMPH: No cervical lymphadenopathy. DS: Data Data Completed and Pending Pending studies at discharge: Pending at discharge 11/04/22 13:49 Surgical [PTH] Routine Lab
== END 2022-11-05 12:55 | disposition home or self-care (01) | DRG 543 ==
LOC: ANHED 20:07 → ANH3MEDSUR 21:51
PROVIDERS: Emergency Medicine; Obstetrics & Gynecology; Admitting Provider Hospitalist; Emergency Provider Nurse Practitioner Family; Visit Provider Hospitalist
PROC: 10D17ZZ Extraction of Products of Conception, Retained, Via Natural or Artificial Opening (ICD-10-PCS; principal; 2022-11-04 14:00)
DX: O07.1 Delayed or excessive hemorrhage following failed attempted termination of pregnancy (principal); D62 Acute posthemorrhagic anemia
CPT/HCPCS: 36415; 36430; 76830; 76856; 80048; 80053; 82728; 83540; 83550; 84702; 85014; 85018; 85025; 85610; 85730; 86850; 86900; 86901; 86923; 88305; 96372; 99285; A9270; J0500; J2250; J2704; J3010; J7030; J7050; J7120; P9016